=== PATIENT | male | born 1930 | race Caucasian/White ===

== ENCOUNTER 2016-09-11 21:33 | Inpatient (IN) | payer MEDICARE, BC ==
[~2016-09-11] VITALS: Ht 185.4 cm; Wt 103.1 kg
[2016-09-11 21:59] VITALS: BP 206/78; PULSE 55; TEMP 97.5
[2016-09-11 22:33] LABS: HEMATOCRIT 31.3 % (42.0-52.0)
[2016-09-11] MEDS ORDERED: COUMADIN 5MG5 MG/TAB PO (22:42)
[2016-09-11] MEDS ORDERED: K-DUR 10 MEQ T10 MEQ PO (22:43)
[2016-09-11] MEDS ORDERED: MICROZIDE12.5 MG PO (22:45)
[2016-09-11] MEDS ORDERED: TENORMIN 2525 MG/TAB PO (22:46)
[2016-09-11] MEDS ORDERED: NORVASC 5MG5 MG/TAB PO (22:47)
[2016-09-11] MEDS ORDERED: HYTRIN 5MG C5 MG/CAP PO (22:47)
[2016-09-11] MEDS ORDERED: ZANTAC 150MG T150 MG PO (22:48)
[2016-09-11] MEDS ORDERED: TYLENOL 500MG500 MG PO (22:50)
[2016-09-11] MEDS ORDERED: ASPIRIN 81M81 MG/TA2 PO (22:51)
[2016-09-11] MEDS ORDERED: APRESOLINE 25MG25 MG PO (22:51)
[2016-09-11] MEDS ORDERED: COLACE 100100 MG/CAP PO (22:52)
[2016-09-11] MEDS ORDERED: KEPPRA1000 MG PO (22:56)
[2016-09-11] MEDS ORDERED: DIOVAN320 MG PO (22:56)
[2016-09-11] MEDS ORDERED: GLUCOSAMIN 500 PO (22:57)
[2016-09-11] MEDS ORDERED: CITRUCEL FIBER LAXAT PO (22:58)
[2016-09-11 23:55] VITALS: BP 156/70; PULSE 57; TEMP 97.7
[2016-09-12 03:44] VITALS: BP 136/62; PULSE 74; TEMP 98.2
[2016-09-12 07:40] LABS: MEAN CELL VOLUME 83 fl (80.0-100.0); MEAN CORPUSCULAR HGB CONC 31 g/dl (33.0-37.0); MEAN PLATELET VOLUME 10.4 fl (7.4-10.4); PLATELET COUNT 122 K/mm3 (130-400); RED BLOOD COUNT 3.95 M/mm3 (4.20-5.60); REDCELL DISTRIBUTION WIDTH-CV 17.8 % (11.5-14.5); WHITE BLOOD COUNT 3.1 K/mm3 (4.8-10.8)
[2016-09-12 07:42] VITALS: BP 125/52; PULSE 61; TEMP 98.4
[2016-09-12 07:42] LABS: INR 2.3 (0.8-3.0); PROTHROMBIN TIME 25.7 SECONDS (9.7-12.8)
[2016-09-12 07:49] LABS: ADD PATHOLOGY DIFF REVIEW NO; HEMATOCRIT 32.7 % (42.0-52.0); HEMOGLOBIN 10.2 g/dl (13.5-18.0); MEAN CORPUSCULAR HEMOGLOBIN 26 pg (27.0-31.0)
[2016-09-12 07:54] LABS: CALCIUM 8.5 mg/dL (8.4-10.2); CREATININE, serum 0.78 mg/dL (0.66-1.25); POTASSIUM 3.2 mmol/L (3.4-5.0)
[2016-09-12 08:43] LABS: BAND 3 % (0-10); NEUTROPHILS 68 % (42.0-75.2); TOTAL CELLS COUNTED 100
[2016-09-12 08:44] LABS: ANISOCYTOSIS 2+; HYPOCHROMIA 1+; OVALOCYTES 1+; PLATELET ESTIMATE NORMAL (NORMAL); POLYCHROMASIA 1+
[2016-09-12 11:49] VITALS: BP 155/56; PULSE 60; TEMP 97.7
[2016-09-12 16:00] VITALS: BP 166/74; PULSE 68
[2016-09-12 19:32] VITALS: BP 167/79; PULSE 82; TEMP 98.2
[2016-09-12 23:38] VITALS: BP 141/59; PULSE 57; TEMP 98.1
[2016-09-13 00:23] LABS: HEMATOCRIT 29.1 % (42.0-52.0); HEMOGLOBIN 9.1 g/dl (13.5-18.0)
[2016-09-13 06:14] VITALS: BP 169/66; PULSE 54; TEMP 98.1
[2016-09-13 07:39] VITALS: BP 191/65; PULSE 55; TEMP 97.4
[2016-09-13 08:46] LABS: INR 1.6 (0.8-3.0)
[2016-09-13 08:50] VITALS: PULSE 64
[2016-09-13 08:50] LABS: HEMATOCRIT 29.4 % (42.0-52.0); HEMOGLOBIN 9.1 g/dl (13.5-18.0)
[2016-09-13 08:53] LABS: CALCIUM 7.9 mg/dL (8.4-10.2); CREATININE, serum 0.81 mg/dL (0.66-1.25)
[2016-09-13 09:01] LABS: POTASSIUM 2.9 mmol/L (3.4-5.0)
[2016-09-13 11:41] VITALS: BP 174/59; PULSE 80
[2016-09-13 15:21] VITALS: BP 175/63; PULSE 58; TEMP 97.9
[2016-09-13 19:19] VITALS: BP 153/63; PULSE 59; TEMP 98.1
[2016-09-14 01:06] VITALS: BP 141/51; PULSE 55; TEMP 98.3
[2016-09-14 03:14] VITALS: BP 169/55; PULSE 58; TEMP 98.3
[2016-09-14 07:12] LABS: INR 1.4 (0.8-3.0); PROTHROMBIN TIME 15.5 SECONDS (9.7-12.8)
[2016-09-14 07:16] LABS: CALCIUM 8.1 mg/dL (8.4-10.2); CREATININE, serum 0.82 mg/dL (0.66-1.25); POTASSIUM 3.4 mmol/L (3.4-5.0)
[2016-09-14 08:05] VITALS: BP 173/81; PULSE 57; TEMP 97.8
[2016-09-14] MEDS ORDERED: NORVASC 10MG10 MG PO (10:29)
[2016-09-14] MEDS ORDERED: ALDACTONE50 MG PO (10:29)
[2016-09-14 11:40] VITALS: BP 124/60; PULSE 65; TEMP 97.8
== END 2016-09-14 16:22 | disposition home or self-care (01) | DRG 375 ==
LOC: MEDICAL 21:33
PROVIDERS: Internal Medicine Gastroenterology; Nurse Practitioner Family; Physician Assistant
PROC: 0DBP8ZX Excision of Rectum, Via Natural or Artificial Opening Endoscopic, Diagnostic (ICD-10-PCS; principal; 2016-09-12 13:00)
DX: C20 Malignant neoplasm of rectum (principal); D62 Acute posthemorrhagic anemia; I48.0 Paroxysmal atrial fibrillation; I10 Essential (primary) hypertension; G40.909 Epilepsy, unspecified, not intractable, without status epilepticus; E87.6 Hypokalemia; R53.1 Weakness; Z79.01 Long term (current) use of anticoagulants
CPT/HCPCS: 99233-AI; 99239; G0378; J0360; J2250; J3010; J7030

== ENCOUNTER 2016-09-27 12:56 | Day surgery (SDC) | payer MEDICARE, BC ==
[~2016-09-27] VITALS: Ht 182.9 cm; Wt 107.6 kg
[~2016-09-27 12:56] MED LIST: ALDACTONE50 MG PO; APRESOLINE 25MG25 MG PO; ASPIRIN 81M81 MG/TA2 PO; CITRUCEL FIBER LAXAT PO; COLACE 100100 MG/CAP PO; COUMADIN 5MG5 MG/TAB PO; DIOVAN320 MG PO; GLUCOSAMIN 500 PO; HYTRIN 5MG C5 MG/CAP PO; K-DUR 10 MEQ T10 MEQ PO; KEPPRA1000 MG PO; MICROZIDE12.5 MG PO; NORVASC 10MG10 MG PO; NORVASC 5MG5 MG/TAB PO; TENORMIN 2525 MG/TAB PO; TYLENOL 500MG500 MG PO; ZANTAC 150MG T150 MG PO
[2016-09-27] MEDS ORDERED: MULTI VITAMINS1 TAB PO (13:27)
[2016-09-27] MEDS ORDERED: CITRUCEL WITH500 MG PO (13:29)
[2016-09-27] MEDS ORDERED: NORVASC 10MG10 MG PO (13:38)
[2016-09-27] MEDS ORDERED: ALDACTONE 25MG25 M1 PO (13:40)
[2016-09-27] MEDS ORDERED: PHILLIPS CAPLETS PO (13:44)
[2016-09-27] MEDS ORDERED: K-TAB10 PO (13:46)
[2016-09-27 14:02] VITALS: BP 124/67; PULSE 74; TEMP 98.2
[2016-09-27 15:20] VITALS: BP 124/67; PULSE 54; TEMP 97.9
[2016-09-27 15:35] VITALS: BP 126/71; PULSE 51
[2016-09-27 16:46] VITALS: BP 109/66; PULSE 50
== END 2016-09-27 16:29 | disposition home or self-care (01) ==
LOC: SDCO 12:56
DX: C20 Malignant neoplasm of rectum (principal); I48.0 Paroxysmal atrial fibrillation; Z79.01 Long term (current) use of anticoagulants; R06.02 Shortness of breath; I25.10 Atherosclerotic heart disease of native coronary artery without angina pectoris; I10 Essential (primary) hypertension; G40.909 Epilepsy, unspecified, not intractable, without status epilepticus
CPT/HCPCS: OP; J2250; J3010; J7030

== ENCOUNTER 2017-10-05 09:01 | Day surgery (SDC) | payer MEDICARE, BC ==
[~2017-10-05] VITALS: Ht 180.3 cm; Wt 104.6 kg
[~2017-10-05 09:01] MED LIST changes: +ALDACTONE 25MG25 M1 PO; +CITRUCEL WITH500 MG PO; +K-TAB10 PO; +MULTI VITAMINS1 TAB PO; +PHILLIPS CAPLETS PO
[2017-10-05] MEDS ORDERED: COZAAR100 MG PO (10:03)
[2017-10-05] MEDS ORDERED: COREG 6.256.25 MG/TA PO (10:04)
[2017-10-05] MEDS ORDERED: CATAPRES 0.1MG0.1 MG PO (10:05)
[2017-10-05] MEDS ORDERED: COUMADIN 5MG5 MG/TAB PO (10:06)
[2017-10-05] MEDS ORDERED: CARDURA4 MG PO (10:06)
[2017-10-05] MEDS ORDERED: MELATONIN5 M1 SL (10:06)
[2017-10-05] MEDS ORDERED: LIPITOR20 MG PO (10:07)
[2017-10-05 10:09] VITALS: BP 149/78; PULSE 59; TEMP 97.1
[2017-10-05 11:55] VITALS: BP 144/90; PULSE 53; TEMP 97.2
[2017-10-05 12:10] VITALS: BP 159/87; PULSE 54
[2017-10-05 12:25] VITALS: BP 156/84; PULSE 45
[2017-10-05 12:40] VITALS: BP 161/86; PULSE 45
[2017-10-05 13:00] VITALS: BP 157/88; PULSE 47
== END 2017-10-05 13:25 | disposition home or self-care (01) ==
LOC: SDCO 09:01
DX: Z12.11 Encounter for screening for malignant neoplasm of colon (principal); Z85.038 Personal history of other malignant neoplasm of large intestine; K57.30 Diverticulosis of large intestine without perforation or abscess without bleeding; D64.9 Anemia, unspecified; I10 Essential (primary) hypertension
CPT/HCPCS: J2250; J3010; J7030